=== PATIENT | female | born 1940 | race Caucasian/White ===

== ENCOUNTER 2016-10-09 08:00 | Outpatient (RCR) | payer MEDICARE, BC ==
[~2016-10-09 08:00] MED LIST: B-121000 MCG PO; COZAAR100 MG PO; FISH OIL1000 MG PO; K2 PO; LUTEIN20 M1 PO; MAGNESIUM100 MG PO; METFORMIN ER500 MG PO; SYNTHROID RP0.088 MG PO; SYNTHROID0.075 MG/T PO; THE MEDICINE S200 M2 PO; VITAMIN D32000 IU PO; ZITHROMAX 250M250 MG PO
== END 2016-11-26 | disposition still patient (30) ==
LOC: WSPT
DX: M48.07 Spinal stenosis, lumbosacral region (principal); M54.17 Radiculopathy, lumbosacral region; M54.5 Low back pain
CPT/HCPCS: G0283-GP; G8978-GP; G8979-GP; G8980-GP

== ENCOUNTER → 2016-12-09 | Outpatient (CLI) | payer MEDICARE, BC ==
[~2016-12-09] MED LIST changes: +TOPROL XL 50MG50 MG PO
== END ==
LOC: SUN.DIA 12-08 10:45
DX: E11.65 Type 2 diabetes mellitus with hyperglycemia (principal); Z68.25 Body mass index [BMI] 25.0-25.9, adult; Z71.3 Dietary counseling and surveillance; E78.5 Hyperlipidemia, unspecified; I10 Essential (primary) hypertension; E03.9 Hypothyroidism, unspecified
CPT/HCPCS: G0108

== ENCOUNTER 2016-12-20 21:56 | Emergency (ER) | payer MEDICARE, BC ==
[~2016-12-20] VITALS: Ht 167.6 cm; Wt 72.7 kg
[~2016-12-20 21:56] MED LIST changes: -TOPROL XL 50MG50 MG PO
[2016-12-20 22:59] LABS: BASO # 0.2 (0.0-0.2); BASO % 1.7 % (0.0-2.0); EOS # 0.3 (0.0-0.7); EOS % 3.2 % (0-4.0); GRAN # 5.2 (1.4-6.5); GRAN % 48.7 % (42.2-75.2); LYMPH % 37.6 % (20.0-51.0); MEAN CELL VOLUME 84 fl (80.0-100.0); MEAN CORPUSCULAR HEMOGLOBIN 28 pg (27.0-31.0); MEAN CORPUSCULAR HGB CONC 33 g/dl (33.0-37.0); MONO # 0.9 (0.1-0.6); PLATELET COUNT 320 K/mm3 (130-400); RED BLOOD COUNT 4.62 M/mm3 (4.10-5.30); REDCELL DISTRIBUTION WIDTH-CV 13.9 % (11.5-14.5); WHITE BLOOD COUNT 10.6 K/mm3 (4.8-10.8)
[2016-12-20 23:09] LABS: CALCIUM 9.4 mg/dL (8.4-10.2); CREATININE, serum 0.89 mg/dL (0.52-1.25); POTASSIUM 3.6 mmol/L (3.4-5.0)
[2016-12-20 23:28] LABS: INR 0.9 (0.8-3.0); PROTHROMBIN TIME 10.3 SECONDS (9.7-12.8)
[2016-12-20 23:31] LABS: PARTIAL THROMBOPLASTIN TIME 30.6 SECONDS (26.0-37.0)
[2016-12-20] MEDS ORDERED: TOPROL XL 50MG50 MG PO (23:48)
[2016-12-21 00:05] VITALS: BP 153/83; PULSE 73
== END 2016-12-21 00:38 | disposition home or self-care (01) ==
LOC: COL.ER 21:56
PROVIDERS: Emergency Medicine
DX: I10 Essential (primary) hypertension (principal); R04.0 Epistaxis; E11.9 Type 2 diabetes mellitus without complications; Z79.84 Long term (current) use of oral hypoglycemic drugs

== ENCOUNTER 2018-05-20 11:15 | Outpatient (RCR) | payer MEDICARE, BC ==
[~2018-05-20 11:15] MED LIST changes: +TOPROL XL 50MG50 MG PO
== END 2018-05-23 08:08 | disposition home or self-care (01) ==
LOC: WSPT 11:15
DX: M48.07 Spinal stenosis, lumbosacral region (principal); R25.2 Cramp and spasm
CPT/HCPCS: G8978-GP; G8979-GP; G8980-GP

== ENCOUNTER 2018-11-17 13:46 | Emergency (ER) | payer MEDICARE, BC ==
[~2018-11-17] VITALS: Ht 167.6 cm; Wt 68.2 kg
[2018-11-17 13:53] VITALS: TEMP 97
[2018-11-17 17:18] VITALS: BP 125/75; PULSE 75
== END 2018-11-17 17:18 | disposition home or self-care (01) ==
LOC: COL.ER 13:46
DX: S00.93XA Contusion of unspecified part of head, initial encounter (principal); S20.211A Contusion of right front wall of thorax, initial encounter; I10 Essential (primary) hypertension; E11.9 Type 2 diabetes mellitus without complications; Z79.84 Long term (current) use of oral hypoglycemic drugs; Z86.73 Personal history of transient ischemic attack (TIA), and cerebral infarction without residual deficits; W01.198A Fall on same level from slipping, tripping and stumbling with subsequent striking against other object, initial encounter

== ENCOUNTER 2020-01-19 17:18 | Inpatient (IN) | payer MEDICARE, BC ==
[~2020-01-19] VITALS: Ht 170.2 cm; Wt 70.6 kg
[2020-01-19 18:25] LABS: HEMATOCRIT 44.7 % (37.0-47.0); MEAN CELL VOLUME 84 fl (80.0-100.0); MEAN CORPUSCULAR HEMOGLOBIN 28 pg (27.0-31.0); MEAN CORPUSCULAR HGB CONC 34 g/dl (33.0-37.0); PLATELET COUNT 289 K/mm3 (130-400); REDCELL DISTRIBUTION WIDTH-CV 14.3 % (11.5-14.5)
[2020-01-19 18:47] LABS: ALBUMIN 4.4 gm/dL (3.5-5.0); C-REACTIVE PROTEIN 2.7 mg/dL (0.0-0.9); CALCIUM 9.7 mg/dL (8.4-10.2); CREATININE, serum 0.73 (0.52-1.25); POTASSIUM 4.1 mmol/L (3.4-5.0); TOTAL PROTEIN 8.3 gm/dL (6.4-8.2)
[2020-01-19 19:16] LABS: BAND 5 % (0-10); LYMPHOCYTE 9 % (20.0-51.0); MYELOCYTE 1 % (0-0); NEUTROPHILS 85 % (42.0-75.2)
[2020-01-19 19:17] LABS: PLATELET ESTIMATE NORMAL (NORMAL)
[2020-01-19 19:19] LABS: COLLECTION METHOD CATHETER
[2020-01-19 19:33] LABS: PH 7 (5-8); SQUAMOUS EPITHELIAL 0-2 /hpf; URINE APPEARANCE Clear; URINE BACTERIA None Seen /hpf; URINE BILIRUBIN Negative (NEGATIVE); URINE BLOOD 1+ (NEGATIVE); URINE COLOR Yellow; URINE GLUCOSE Negative (NEGATIVE); URINE KETONE Negative (NEGATIVE); URINE LEUKOCYTE ESTERASE Negative (NEGATIVE); URINE NITRATE Negative (NEGATIVE); URINE PROTEIN(semi-quant) Negative (NEGATIVE); URINE UROBILINOGEN Negative (NEGATIVE)
--- NOTE | 2020-01-19 21:45 | NUR ---
Received patient from ER admission via stretcher. Patient is alert and oriented. She was able to transfer from wheelchair to bed independently. With IV at left forearm, infusing Doxycycline. Patient's son is on the bedside. Denies any pain. Started NS 1000ml at 200ml/hr. Patient was seen by KANU Gaona. Assessment done. Will continue to monitor.
[2020-01-19 21:46] VITALS: BP 153/69; PULSE 85; TEMP 98.1
[2020-01-19] MEDS ORDERED: BENICAR 20MG TA20 MG PO (22:39)
[2020-01-20] VITALS (8 sets, daily range): BP systolic 125–147; BP diastolic 45–80; PULSE 52–90; TEMP 98.7–101.9
--- NOTE | 2020-01-20 01:10 | NUR ---
Patient's temperature at midnight was 100.3F. Informed ANP Candelaria. Rechecked temp after an hour and it was 101.9F. Tylenol PRN given.
--- NOTE | 2020-01-20 05:39 | NUR ---
Patient had a febrile episode at 0100H. Tylenol was given. Last temp was 99.2F. Patient denies any pain. Had to reinsert her IV since she's complaining of pain on the IV site on the left forearm. Will endorse to day shift nurse.
[2020-01-20 07:34] LABS: CALCIUM 8.3 mg/dL (8.4-10.2); CREATININE, serum 0.68 (0.52-1.25); MAGNESIUM 1.6 mg/dL (1.6-2.3); POTASSIUM 3.3 mmol/L (3.4-5.0)
[2020-01-20 07:43] LABS: HEMATOCRIT 40.6 % (37.0-47.0); HEMOGLOBIN 13.4 g/dl (12.5-16.0); MEAN CELL VOLUME 86 fl (80.0-100.0); MEAN CORPUSCULAR HEMOGLOBIN 28 pg (27.0-31.0); MEAN CORPUSCULAR HGB CONC 33 g/dl (33.0-37.0); MEAN PLATELET VOLUME 11.7 fl (7.4-10.4); PLATELET COUNT 244 K/mm3 (130-400); RED BLOOD COUNT 4.74 M/mm3 (4.10-5.30); REDCELL DISTRIBUTION WIDTH-CV 14.6 % (11.5-14.5)
[2020-01-20 08:04] LABS: TSH w REFLEX 1.16 uIU/mL (0.465-4.680)
[2020-01-20 09:17] LABS: BAND 10 % (0-10); EOSINOPHIL 2 % (0-4); LYMPHOCYTE 3 % (20.0-51.0); NEUTROPHILS 77 % (42.0-75.2); PLATELET ESTIMATE NORMAL (NORMAL)
--- NOTE | 2020-01-20 10:25 | NUR ---
Visited and provided spiritual care.
[2020-01-20 13:32] LABS: TRICYCLIC ANTIDEPRESS URINE NEGATIVE
--- NOTE | 2020-01-20 15:00 | NUR ---
Vancomycin Initial Dosing Pharmacy Note Ordering provider: Yanelis Heredia MD Indication/duration: Empiric coverage, PCN allergies Relevant comorbidities: poss PNA LABS: eCrCl ~ 65 mL/min, WBC 24 Recommendation: Maintenance dose: 1 gram every 12 hours Trough goal: 15-20 ug/mL with first trough draw prior to the 5th dose on 01/22/20 @ 15:00. Will continue to follow.
[2020-01-20 15:13] LABS: ALCOHOL(ethanol),MEDICAL < 10 mg/dL; SALICYLATE < 1.0 mg/dL
--- NOTE | 2020-01-20 19:06 | NUR ---
patient alert and oriented. denies any pain. complained of nausea this morning. doctor put an order for Zofran. patient later said he is doing okay. RF IV infiltrated another was placed in his right hand. Report given to night nurse CRESCENCIO Marcum.
--- NOTE | 2020-01-20 19:10 | NUR ---
Received report from Jackie. Patient is awake, lying on bed. Denies any pain. With IVF at right forearm infusing NS at 100ml/hr. Will continue to monitor.
[2020-01-21 00:21] VITALS: BP 128/46; PULSE 88; TEMP 97.4
[2020-01-21 04:19] VITALS: BP 131/56; PULSE 88; TEMP 98.7
--- NOTE | 2020-01-21 05:17 | NUR ---
Patient had an uneventful night. No febrile episodes during the shift. Denies any pain. Will endorse to day shift nurse.
[2020-01-21 07:41] VITALS: BP 119/67; PULSE 91; TEMP 99
[2020-01-21 07:51] LABS: BASO # 0.2 (0.0-0.2); BASO % 0.6 % (0.0-2.0); EOS # 0.1 (0.0-0.7); EOS % 0.5 % (0-4.0); GRAN # 19.3 (1.4-6.5); GRAN % 83.3 % (42.2-75.2); HEMATOCRIT 37.3 % (37.0-47.0); HEMOGLOBIN 12.2 g/dl (12.5-16.0); LYMPH # 2.4 (1.2-3.4); LYMPH % 10.2 % (20.0-51.0); MEAN CELL VOLUME 86 fl (80.0-100.0); MEAN CORPUSCULAR HEMOGLOBIN 28 pg (27.0-31.0); MEAN CORPUSCULAR HGB CONC 33 g/dl (33.0-37.0); MEAN PLATELET VOLUME 11.6 fl (7.4-10.4); MONO # 0.9 (0.1-0.6); PLATELET COUNT 208 K/mm3 (130-400); RED BLOOD COUNT 4.36 M/mm3 (4.10-5.30); REDCELL DISTRIBUTION WIDTH-CV 14.6 % (11.5-14.5)
[2020-01-21 07:54] LABS: CALCIUM 8.4 mg/dL (8.4-10.2); CREATININE, serum 0.65 (0.52-1.25)
[2020-01-21 08:28] LABS: POTASSIUM 3.2 mmol/L (3.4-5.0)
[2020-01-21 11:47] VITALS: BP 141/77; PULSE 73; TEMP 97.5
[2020-01-21 15:54] VITALS: BP 140/96; PULSE 83; TEMP 98.9
[2020-01-21 20:00] VITALS: BP 166/75; PULSE 83; TEMP 99
--- NOTE | 2020-01-21 20:54 | NUR ---
PT SITTING IN RECLINER, WITH NO C/O PAIN OR DISCOMFORT, HAS CALL LIGHT WITHIN REACH.
[2020-01-22 01:10] VITALS: BP 141/84; PULSE 88; TEMP 99
[2020-01-22 04:35] VITALS: BP 139/73; PULSE 83; TEMP 98
--- NOTE | 2020-01-22 05:01 | NUR ---
Pt got up several times during the night and did not use her call light to ask for assistance. Pt's bed alarm went off, and we were able to assist her to the bathroom. Pt did not seem to have slept much during the night. Pt dosed off a few times, but not for long. Pt denies pain or discomfort. Call light within reach, and Pt educated on how to use.
[2020-01-22 08:37] VITALS: BP 139/63; PULSE 95; TEMP 98.9
[2020-01-22 09:56] LABS: HEMOGLOBIN 12.4 g/dl (12.5-16.0); MEAN CELL VOLUME 85 fl (80.0-100.0); MEAN CORPUSCULAR HEMOGLOBIN 28 pg (27.0-31.0); MEAN CORPUSCULAR HGB CONC 34 g/dl (33.0-37.0); MEAN PLATELET VOLUME 11.4 fl (7.4-10.4); PLATELET COUNT 232 K/mm3 (130-400); RED BLOOD COUNT 4.38 M/mm3 (4.10-5.30); REDCELL DISTRIBUTION WIDTH-CV 14.6 % (11.5-14.5)
[2020-01-22 10:02] LABS: CALCIUM 8.7 mg/dL (8.4-10.2); CREATININE, serum 0.63 (0.52-1.25); POTASSIUM 3.7 mmol/L (3.4-5.0)
--- NOTE | 2020-01-22 10:23 | NUR ---
Pt in bed with eyes open and states "I am hoping to go home today." Pt is currently waiting for doctor to come in and discuss her plan of care with her. Pt's son was in this morning. Pt is currently in bed, eyes open and call light in reach with bed alarm on.
[2020-01-22 10:59] LABS: BAND 6 % (0-10); EOSINOPHIL 1 % (0-4); LYMPHOCYTE 9 % (20.0-51.0); METAMYELOCYTE 2 % (0-0); NEUTROPHILS 79 % (42.0-75.2); PLATELET ESTIMATE NORMAL (NORMAL)
[2020-01-22] MEDS ORDERED: OMNICEF 300MG300 MG PO (13:08)
--- NOTE | 2020-01-22 16:25 | NUR ---
Pt noted wanting to go downstairs to wait for son to come pick her up to go home. This ad writer assisted pt back into room and encouraged to wait in room for son. Pt asked when her son would be in to get her to finally take her home. Advised pt that her son had stated he would be in around 1600 to get her when he got off work. Pt stated she would wait in room until then. Pt's son arrived at 1550 and was advised about paperwork that pt has in her bag, up coming appt, and about the abx that would need to be picked up from [facility]. Pt's son stated his understanding. Pt left with son by her side.
--- NOTE | 2020-01-22 16:30 | NUR ---
Patient discharged at 1555 accompanied by son. Declined afternoon medications as she stated she was discharging and didn't need them. Did encourage to take meds and continued to decline. Patient dressed self and ambulated around the room, was ready by 1300, she did collect belongings and had them bagged and ready to go. Discharged via private vehicle, declined wheelchair.
--- NOTE | 2020-01-22 16:55 | NUR ---
Dolly Driver met with patient and patient's son Hayden (ph#[phone]) to discuss discharge planning. Patient lives alone in [place] and sees Dr. Harmon for primary care. Patient obtains medications from [facility] with no difficulties. Patient has canes at home and reports independence with ADLS. SW discussed therapy recommendations for Home vs. Post Acute Rehab. Patient states she is going home and has no concerns about doing so. SW collaborated with Hospitalist who advised patient is agreeable to Home Health. SW met with patient who is agreeable to Home Health but is skeptical. SW advised patient multiple times that it is her choice. SW presented Medicare.gov list of HH agencies and patient selected [facility]. FAITH contacted Sonia at [facility] and faxed referral. SW was advised they could accept referral and would contact patient tomorrow to establish care. SW provided this update to patient who is in agreeance. Patient to discharge home today with her other son providing transportation.
== END 2020-01-22 15:55 | disposition home health service (06) | DRG 871 ==
LOC: COL.ER 17:18 → MEDICAL 20:22
PROVIDERS: Emergency Medicine; Nurse Practitioner Family; Student in an Organized Health Care Education/Training Program; ADMIT Internal Medicine
DX: A41.9 Sepsis, unspecified organism (principal); J18.9 Pneumonia, unspecified organism; I10 Essential (primary) hypertension; E11.9 Type 2 diabetes mellitus without complications; E03.9 Hypothyroidism, unspecified; Z88.1 Allergy status to other antibiotic agents; I49.9 Cardiac arrhythmia, unspecified; M54.30 Sciatica, unspecified side; Z79.84 Long term (current) use of oral hypoglycemic drugs; M19.90 Unspecified osteoarthritis, unspecified site
CPT/HCPCS: 99222-AI; 99233-AI; 99239; A4216; J0692; J1650; J1815; J3370; J7030; J7050

== ENCOUNTER 2020-04-12 08:30 | Outpatient (RCR) | payer MEDICARE, BC ==
[~2020-04-12 08:30] MED LIST changes: +BENICAR 20MG TA20 MG PO; +OMNICEF 300MG300 MG PO
== END 2020-05-01 09:15 | disposition home or self-care (01) ==
LOC: WSC 08:30
DX: R26.81 Unsteadiness on feet (principal)